=== PATIENT | male | born 1970 | race African-American/Black ===

== ENCOUNTER 2017-02-13 20:30 | Emergency (ER) | payer OTHER ==
[~2017-02-13] VITALS: Ht 182.9 cm; Wt 79.4 kg
[2017-02-13] MEDS ORDERED: Azithromycin 250mg tab PO ONE (21:00)
[2017-02-13] MEDS ORDERED: Albuterol ud Inhalation HHN ONE (21:00)
--- NOTE | 2017-02-13 21:05 | Emergency Room Report ---
History of Present Illness General Chief Complaint: Chest Pain Source: Patient, EMS Present Illness HPI The patient is brought in from long term with chest pain and cough. He is producing green phlegm for several days. He smokes. He says it's worse when he's laying his right side. He hears himself wheezing also but has never used an inhaler before. He complains about chest pain also is more pleuritic. It is 8/10 and now on the right-hand side. He states he's had pneumonia in the past and feels he needs antibiotics. He denies any cardiac problems in the past. Paramedics treated the patient with aspirin in the field. No NVD, joint pain, BOO, rashes, dizziness, depression. Allergies: Coded Allergies: No Known Allergies (Unverified , 02/13/17) Patient History Past Medical History: see triage record Social History: Reports: smoking Social History Narrative from long term Reviewed Nursing Documentation: PMH: Agreed, PSxH: Agreed Review of Systems All Other Systems: negative except mentioned in HPI Physical Exam Vital Signs Date Time Temp Pulse Resp B/P Pulse Ox O2 Delivery O2 Flow Rate FiO2 02/13/17 20:25 98.1 66 18 105/57 98 Room Air Sp02 EP Interpretation: reviewed, normal General Appearance: well appearing, no apparent distress, GCS 15 Head: normocephalic Eyes: bilateral eye PERRL, bilateral eye Scleral Injection ENT: moist mucus membranes, other - lip burn or chapping Neck: supple Respiratory: lungs clear, normal breath sounds Cardiovascular #1: regular rate, rhythm, no edema Cardiovascular #2: 2+ radial (R) Gastrointestinal: normal inspection, normal bowel sounds, non tender, no mass, non-distended, scaphoid Musculoskeletal: back normal, gait/station normal, normal range of motion Neurologic: alert, oriented x3, grossly normal Psychiatric: mood/affect normal Skin: normal inspection, warm/dry Medical Decision Making Diagnostic Impression: Primary Impression: Pneumonia Qualified Codes: J18.1 - Lobar pneumonia, unspecified organism Additional Impression: Chest pain Qualified Codes: R07.9 - Chest pain, unspecified ER Course Patient presents with chest pain cough and productive phlegm. Differential includes pneumonia, bronchitis, asthma, myocardial infarction, asthma LOC amongst others. Evaluation of the EKG, chest x-ray and the patient will be treated with albuterol his demise and ibuprofen. EKG returned to J-point elevation. Because of the sun and EKG a troponin is added. CXR with L infiltrate. Antibiotics ordered. Improved with albuterol. Still with cough. Severe leg spasms. Ativan ordered. Improved. PD state they have [facility]. Patient stable for booking and outpatient treatment of pneumonia. Labs Test 02/13/17 21:30 White Blood Count 13.7 K/UL (4.8-10.8) Red Blood Count 4.08 M/UL (4.70-6.10) Hemoglobin 13.0 G/DL (14.2-18.0) Hematocrit 39.4 % (42.0-52.0) Mean Corpuscular Volume 96 FL (80-99) Mean Corpuscular Hemoglobin 31.8 PG (27.0-31.0) Mean Corpuscular Hemoglobin Concent 32.9 G/DL (32.0-36.0) Red Cell Distribution Width 12.4 % (11.6-14.8) Platelet Count 218 K/UL (150-450) Mean Platelet Volume 6.7 FL (6.5-10.1) Neutrophils (%) (Auto) 73.9 % (45.0-75.0) Lymphocytes (%) (Auto) 15.8 % (20.0-45.0) Monocytes (%) (Auto) 7.2 % (1.0-10.0) Eosinophils (%) (Auto) 2.7 % (0.0-3.0) Basophils (%) (Auto) 0.5 % (0.0-2.0) Urine Color Brown Urine Appearance Clear Urine pH 6 (4.5-8.0) Urine Specific [place] 1.020 (1.005-1.035) Urine Protein 2+ (NEGATIVE) Urine Glucose (UA) Negative (NEGATIVE) Urine Ketones 1+ (NEGATIVE) Urine Occult Blood Negative (NEGATIVE) Urine Nitrite Negative (NEGATIVE) Urine Bilirubin 1+ (NEGATIVE) Urine Ictotest Negative Urine Urobilinogen 1 MG/DL (0.0-1.0) Urine Leukocyte Esterase 1+ (NEGATIVE) Urine RBC 0-2 /HPF (0 - 0) Urine WBC 2-4 /HPF (0 - 0) Urine Squamous Epithelial Cells None /LPF (NONE/OCC) Urine Bacteria Few /HPF (NONE) Sodium Level 143 mEQ/L (135-145) Potassium Level 3.9 mEQ/L (3.4-4.9) Chloride Level 103 mEQ/L (98-107) Carbon Dioxide Level 29 mEQ/L (20-30) Anion Gap 11 (5-15) Blood Urea Nitrogen 16 mg/dL (7-23) Creatinine 1.1 mg/dL (0.7-1.2) Estimat Glomerular Filtration Rate > 60 mL/min (>60) Glucose Level 97 mg/dL (74-106) Calcium Level 9.0 mg/dL (8.6-10.2) Total Bilirubin 0.8 mg/dL (0.0-1.2) Aspartate Amino Transf (AST/SGOT) 24 U/L (5-40) Alanine Aminotransferase (ALT/SGPT) 8 U/L (3-41) Alkaline Phosphatase 62 U/L (40-129) Troponin I < 0.30 ng/mL (<=0.30) Total Protein 7.2 g/dL (6.6-8.7) Albumin 3.7 g/dL (3.5-5.2) Globulin 3.5 g/dL Albumin/Globulin Ratio 1.0 (1.0-2.7) EKG Diagnostic Results Rate: normal Rhythm: NSR ST Segments: no acute changes - but J point elevation ASA given to the pt in ED: Yes - In the field Rhythm Strip Diag. Results EP Interpretation: yes Rhythm: NSR, no PVC's, no ectopy Chest X-Ray Diagnostic Results Chest X-Ray Diagnostic Results : Chest X-Ray Ordered: Yes # of Views/Limited/Complete: 1 View Indication: Chest Pain Interpretation: no effusion, no pneumothorax, other - R infiltrate Interpreting ER Provider: Electronically signed by Narendra Donaldson MD Last Vital Signs Date Time Temp Pulse Resp B/P Pulse Ox O2 Delivery O2 Flow Rate FiO2 02/13/17 23:03 98.0 100 14 101/66 94 Room Air Status: improved Disposition: D/C TO [facility] IN [facility] Condition: Improved Scripts Albuterol Sulfate* (ALBUTEROL SULFATE MDI*) 8.5 Gm Hfa.aer.ad 2 PUFF INH Q6H, #1 EA 0 Refills Prov: Narendra Donaldson M.D. 02/13/17 Ibuprofen* (MOTRIN*) 600 Mg Tablet 600 MG ORAL Q6H Y for For Pain, #20 TAB Prov: Narendra Donaldson M.D. 02/13/17 Azithromycin* (ZITHROMAX*) 250 Mg Tablet 250 MG ORAL DAILY for 7 Days, TAB 0 Refills Prov: Narendra Donaldson M.D. 02/13/17 Narendra Donaldson M.D. Feb 13, 2017 21:05
[2017-02-13 21:51] LABS: BASOPHILS % (AUTO) 0.5 % (0.0-2.0); EOSINOPHILS % (AUTO) 2.7 % (0.0-3.0); LYMPHOCYTES % (AUTO) 15.8 % (20.0-45.0); MEAN CORPUSCULAR HEMOGLOBIN 31.8 PG (27.0-31.0); MEAN CORPUSCULAR HGB CONC 32.9 G/DL (32.0-36.0); MEAN CORPUSCULAR VOLUME 96 FL (80-99); MEAN PLATELET VOLUME 6.7 FL (6.5-10.1); MONOCYTES % (AUTO) 7.2 % (1.0-10.0); NEUTROPHILS % (AUTO) 73.9 % (45.0-75.0); PLATELET COUNT 218 K/UL (150-450); RED BLOOD COUNT 4.08 M/UL (4.70-6.10); RED CELL DISTRIBUTION WIDTH 12.4 % (11.6-14.8); WHITE BLOOD COUNT 13.7 K/UL (4.8-10.8)
[2017-02-13 21:56] LABS: APPEARANCE,URINE CLEAR; KETONES,URINE 1+ (NEGATIVE); LEUKOCYTE ESTERASE ,URINE 1+ (NEGATIVE); NITRITE,URINE NEGATIVE (NEGATIVE); PH,URINE 6 (4.5-8.0); PROTEIN,URINE 2+ (NEGATIVE); UROBILINOGEN,URINE 1 MG/DL (0.0-1.0)
[2017-02-13 22:10] LABS: BACTERIA,URINE FEW /HPF; ICTOTEST NEGATIVE; RBC,URINE 0-2 /HPF (0 - 0)
[2017-02-13 22:12] LABS: ALANINE AMINOTRANSFERASE 8 U/L (3-41); ANION GAP 11 (5-15); ASPARTATE AMINO TRANSFERASE 24 U/L (5-40); CARBON DIOXIDE 29 mEQ/L (20-30); CHLORIDE 103 mEQ/L (98-107); CREATININE 1.1 mg/dL (0.7-1.2); GLOMERULAR FILTRATION RATE > 60 mL/min (>60); HEMOLYSIS 23; POTASSIUM 3.9 mEQ/L (3.4-4.9); SODIUM 143 mEQ/L (135-145); TOTAL PROTEIN 7.2 g/dL (6.6-8.7); TROPONIN I < 0.30 ng/mL (<=0.30)
[2017-02-13 22:18] VITALS: BP 101/66
[2017-02-13] MEDS ORDERED: LORazepam Inj 2mg/ml 1ml IV ONE (22:45)
[2017-02-13] MEDS ORDERED: IBUPROFEN600 MG ORAL (22:54)
[2017-02-13] MEDS ORDERED: ALBUTEROL SULF8.5 GM INH (22:54)
[2017-02-13] MEDS ORDERED: AZITHROMYCIN250 MG ORAL (22:54)
[2017-02-13 23:03] VITALS: BP 101/66
--- NOTE | 2017-02-14 15:47 | Diagnostic Imaging Report ---
Indication: Dyspnea Comparison: None A single view chest radiograph was obtained. Findings: There is parenchymal opacification at the right lung base which may be due to atelectasis or focus of pneumonia. Please correlate clinically. Heart size is normal. Bones are unremarkable. Impression: Right basal atelectasis versus pneumonia. Please correlate clinically
== END 2017-02-13 23:05 ==
LOC: EDBD 20:30 → EMR 21:00
DX: J18.9 Pneumonia, unspecified organism (principal); F17.200 Nicotine dependence, unspecified, uncomplicated
CPT/HCPCS: 36415; 71010; 80053; 81003; 84484; 85025; 93005; 94640; 94664; 96374